=== PATIENT | female | born 1955 | race Caucasian/White ===

== ENCOUNTER 2017-02-15 07:51 | Emergency (ER) | payer OTHER ==
[~2017-02-15] VITALS: Ht 167.6 cm; Wt 61.6 kg
[2017-02-15 07:58] VITALS: BP 128/59; PULSE 91; RESP 16; TEMP 98.2; O2SAT 95
--- NOTE | 2017-02-15 08:23 | PD ---
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 This patient complains of diarrhea for the last 3 weeks. She seen her primary physician for this and had a course of antibiotics for it. Stool studies have been ordered but she hasn't taken the samples to the lab yet. Yesterday evening she started having nausea and vomiting. She also reported some cramping in the left lower quadrant. Currently not having abdominal pain. No fever. No rectal bleeding. Symptom severity is moderate. No alleviating factors. No right sided pain. PFSH Past Medical History Diabetes: Yes ?: Not Social History Alcohol Use: No Tobacco Use: No Substance Use: No Allergies-Medications (Allergen,Severity, Reaction): Coded Allergies: Tetracycline (Verified Allergy, Severe, rash, 02/15/17) Reported Meds & Prescriptions Reported Meds & Active Scripts Active K-Vescent (Potassium Bicarbonate) 25 Meq Tab 50 Meq PO ONCE Zofran (Ondansetron HCl) 4 Mg Tab 4 Mg PO Q6HR PRN Reported Lantus Inj (Insulin Glargine) 1,000 Unit/10 Ml Vial 5 Units SQ HS Novolog Inj (Insulin Aspart) 100 Unit/Ml Inj Unknown Dose Jardiance (Empagliflozin) 10 Mg Tab Unknown Dose PO DAILY Tradjenta (Linagliptin) 5 Mg Tab 5 Mg PO DAILY Trulicity Inj (Dulaglutide Inj) 0.75 Mg/0.5 Ml Pen Unknown Dose SQ Q7D Trulicity Inj (Dulaglutide Inj) 1.5 Mg/0.5 Ml Pen 1.5 Mg SQ Q7D Trulicity Inj (Dulaglutide Inj) 0.75 Mg/0.5 Ml Pen Unknown Dose SQ Q7D Pantoprazole (Pantoprazole Sodium) 20 Mg Tab 20 Mg PO DAILY Welchol (Colesevelam HCl) 3.75 Gm Pkt 3.75 Gm PO DAILY Prozac (Fluoxetine HCl) 40 Mg Cap 60 Mg PO DAILY Review of Systems General / Constitutional: No: Fever Eyes: No: Visual changes HENT: No: Headaches Cardiovascular: No: Chest Pain or Discomfort Respiratory: No: Shortness of Breath Gastrointestinal: Positive: Nausea, Vomiting, Diarrhea, Abdominal Pain Genitourinary: No: Dysuria Musculoskeletal: No: Pain Skin: No Rash Neurologic: No: Weakness Psychiatric: No: Depression Endocrine: No: Polydipsia Hematologic/Lymphatic: No: Easy Bruising Physical Exam Narrative GENERAL: Well-nourished, well-developed patient in no apparent distress. SKIN: Focused skin assessment reveals no rash and nodules. Skin is Warm and dry. HEAD: Atraumatic. Normocephalic. EYES: Pupils equal and round. No scleral icterus. No injection or drainage. ENT: No nasal bleeding or discharge. Mucous membranes pink and moist. NECK: Trachea midline. No JVD. CARDIOVASCULAR: Regular rate and rhythm. No murmur appreciated. RESPIRATORY: No accessory muscle use. Clear to auscultation. Breath sounds equal bilaterally. GASTROINTESTINAL: Abdomen soft, non-tender, nondistended. Hepatic and splenic margins not palpable. MUSCULOSKELETAL: No obvious deformities. No clubbing. No cyanosis. No edema. NEUROLOGICAL: Awake and alert. No obvious cranial nerve deficits. Motor grossly within normal limits. Normal speech. PSYCHIATRIC: Appropriate mood and affect; insight and judgment normal. Data Data Last Documented VS Vital Signs Date Time Temp Pulse Resp B/P Pulse Ox O2 Delivery O2 Flow Rate FiO2 02/15/17 10:22 85 16 110/58 98 Room Air 02/15/17 07:58 98.2 Orders Ondansetron Inj (Zofran Inj) (02/15/17 08:30) Sodium Chlor 0.9% 1000 Ml Inj (Ns 1000 M (02/15/17 08:30) Complete Blood Count With Diff (02/15/17 08:19) Basic Metabolic Panel (Bmp) (02/15/17 08:19) Labs Laboratory Tests Test 02/15/17 02/15/17 08:50 09:10 White Blood Count 4.0 TH/MM3 Red Blood Count 4.53 MIL/MM3 Hemoglobin 13.2 GM/DL Hematocrit 41.1 % Mean Corpuscular Volume 90.5 FL Mean Corpuscular Hemoglobin 29.1 PG Mean Corpuscular Hemoglobin 32.1 % Concent Red Cell Distribution Width 13.4 % Platelet Count 276 TH/MM3 Mean Platelet Volume 8.6 FL Neutrophils (%) (Auto) 65.1 % Lymphocytes (%) (Auto) 13.3 % Monocytes (%) (Auto) 19.9 % Eosinophils (%) (Auto) 1.2 % Basophils (%) (Auto) 0.5 % Neutrophils # (Auto) 2.7 TH/MM3 Lymphocytes # (Auto) 0.5 TH/MM3 Monocytes # (Auto) 0.8 TH/MM3 Eosinophils # (Auto) 0.0 TH/MM3 Basophils # (Auto) 0.0 TH/MM3 CBC Comment DIFF FINAL Differential Comment Sodium Level 141 MEQ/L Potassium Level 3.1 MEQ/L Chloride Level 106 MEQ/L Carbon Dioxide Level 23.3 MEQ/L Anion Gap 9 MEQ/L Blood Urea Nitrogen 10 MG/DL Creatinine 0.70 MG/DL Estimat Glomerular Filtration 85 ML/MIN Rate Random Glucose 169 MG/DL Calcium Level 8.7 MG/DL [facility] Medical Decision Making Medical Screen Exam Complete: Yes Emergency Medical Condition: Yes Medical Record Reviewed: Yes Differential Diagnosis Colitis, gastroenteritis, ileus Narrative Course I have reviewed the patient's electronic medical record. IV placed CBC is normal Metabolic profile is normal other than hypokalemia of 3.1 I gave her IV Zofran and 1 L normal saline IV bolus Patient's abdomen is soft and benign and nontender. Vital signs are normal. Patient is euvolemic I wrote a replacement potassium prescription as well as Zofran to use as needed She is going to get her stool to lab and follow-up with primary care Diagnosis Primary Impression: Nausea vomiting and diarrhea Additional Impression: Hypokalemia, gastrointestinal losses Additional Instructions: The patient was advised to follow up with their physician and return if they worsen. Med/Other Pt SpecificInfo: Prescription(s) given Scripts Potassium Bicarbonate Effervescent (K-Vescent)25 Meq Tab50 Meq PO ONCE #2 TAB Ref 0 Prov:Agustin Osuna MD 02/15/17 Ondansetron (Zofran)4 Mg Tab4 Mg PO Q6HR PRN (NAUSEA OR VOMITING) #14 TAB Ref 0 Prov:Agustin Osuna MD 02/15/17 Disposition: 01 DISCHARGE HOME Condition: Stable Agustin Osuna MD Feb 15, 2017 08:23
[2017-02-15] MEDS ORDERED: ONDANSETRON HCL 4 MG/2 ML VIAL IVP ONE (08:30)
[2017-02-15] MEDS ORDERED: SODIUM CHLOR 0.9% 1000 ML INJ 1,000 ML IV ONE (08:30)
[2017-02-15 09:05] LABS: AUTOMATED NEUTROPHIL # 2.7 TH/MM3 (1.8-7.7); BASOPHIL % 0.5 % (0.0-2.0); EOSINOPHIL % 1.2 % (0.0-4.0); HEMATOCRIT 41.1 % (35.0-46.0); HEMO FLAGS DIFF FINAL; LYMPH % 13.3 % (9.0-44.0); LYMPHOCYTE # 0.5 TH/MM3 (1.0-4.8); MEAN CELL VOLUME 90.5 FL (80.0-100.0); MEAN CORPUSCULAR HEMOGLOBIN 29.1 PG (27.0-34.0); MEAN CORPUSCULAR HGB CONC 32.1 % (32.0-36.0); MONO % 19.9 % (0.0-8.0); NEUT % 65.1 % (16.0-70.0); PLATELET COUNT 276 TH/MM3 (150-450); RED BLOOD COUNT 4.53 MIL/MM3 (4.00-5.30); RED CELL DISTRIBUTION WIDTH 13.4 % (11.6-17.2)
[2017-02-15 09:17] VITALS: BP 114/57; PULSE 80; RESP 16; O2SAT 100
[2017-02-15 09:37] LABS: POTASSIUM 3.1 MEQ/L (3.5-5.1)
[2017-02-15] MEDS ORDERED: DULA0.5I SQ (09:43)
[2017-02-15] MEDS ORDERED: PANT20TA2 PO (09:43)
[2017-02-15] MEDS ORDERED: NOVOLOGSS (09:43)
[2017-02-15] MEDS ORDERED: TRAD5TAB PO (09:43)
[2017-02-15] MEDS ORDERED: DULA10IN SQ (09:43)
[2017-02-15] MEDS ORDERED: EMPA1TAB PO (09:43)
[2017-02-15] MEDS ORDERED: PROZ40CA PO (09:43)
[2017-02-15] MEDS ORDERED: LANTUS2P SQ (09:43)
[2017-02-15] MEDS ORDERED: COLE1PAK PO (09:43)
[2017-02-15 10:02] LABS: BICARBONATE 23.3 MEQ/L (21.0-32.0)
[2017-02-15 10:22] VITALS: BP 110/58; PULSE 85; RESP 16; O2SAT 98
[2017-02-15] MEDS ORDERED: KLORCONEF PO (10:24)
[2017-02-15] MEDS ORDERED: ZOFR4TAB PO (10:24)
== END 2017-02-15 10:37 | disposition home or self-care (01) ==
LOC: PHED 07:51
DX: R11.2 Nausea with vomiting, unspecified (principal); R19.7 Diarrhea, unspecified; E87.6 Hypokalemia; R10.32 Left lower quadrant pain; E11.9 Type 2 diabetes mellitus without complications; Z79.4 Long term (current) use of insulin
CPT/HCPCS: 80048; 85025; 96361; 96374; 99284; J2405; J7030